=== PATIENT | female | born 1990 | race Caucasian/White ===

== ENCOUNTER 2017-10-21 15:48 | Inpatient (IN) | payer BC ==
[~2017-10-21] VITALS: Ht 160 cm; Wt 85.5 kg
[~2017-10-21 15:48] MED LIST: PREN1TAB60 PO
[2017-10-21 16:42] VITALS: BP 139/93
[2017-10-21 16:42] LABS: BASOPHILS # (AUTO) 0.03 x10^3/uL (0-0.1); BASOPHILS % (AUTO) 0 % (0-1); EOSINOPHILS # (AUTO) 0.23 x10^3/uL (0-0.4); EOSINOPHILS % (AUTO) 3 % (1-7); LYMPHOCYTES # (AUTO) 1.04 x10^3/uL (1-3.4); LYMPHOCYTES % (AUTO) 12 % (22-44); MD NO; MEAN CORPUSCULAR HEMOGLOBIN 26.5 pg (27.0-34.8); MEAN CORPUSCULAR VOLUME 80.4 fL (80-100); MEAN PLATELET VOLUME 7.5 fL (7.4-10.4); MONOCYTES # (AUTO) 0.54 x10^3/uL (0.2-0.8); MONOCYTES % (AUTO) 6 % (2-9); NEUTROPHILS # (AUTO) 6.95 x10^3/uL (1.8-6.8); NEUTROPHILS % (AUTO) 79 % (42-75); PLATELET COUNT 232 x10^3/uL (130-400); RED BLOOD COUNT 4.26 x10^6/uL (3.82-5.3); RED CELL DISTRIBUTION WIDTH 15.7 % (9.6-15.2)
[2017-10-21 16:50] LABS: MICROSCOPIC AUTO
[2017-10-21 16:51] LABS: ALANINE AMINOTRANSFERASE 14 U/L (12-78); ANION GAP 11 mmol/L (5-15); CHLORIDE 107 mmol/L (98-107); CREATININE 0.68 mg/dL (0.55-1.02)
[2017-10-21 16:55] LABS: CREATININE,URINE RANDOM 39.5 mg/dL
[2017-10-21 16:58] LABS: ALKALINE PHOSPHATASE 194 U/L (45-117); BILIRUBIN,TOTAL 0.2 mg/dL (0.2-1.0); TOTAL PROTEIN 6.2 g/dL (6.4-8.2)
[2017-10-21 16:59] LABS: BILIRUBIN, DIRECT < 0.1 mg/dL (0.1-0.2)
[2017-10-21] MEDS ORDERED: ONDANSETRON 2MG/ML, 2ML IVPush PRN (21:30)
[2017-10-21] MEDS ORDERED: ACETAMINOPHEN 325 MG TABLET PO PRN (21:30)
[2017-10-21] MEDS ORDERED: CALCIUM CARBONATE 500 MG TAB.CHEW PO SCH (21:30)
[2017-10-21 22:04] VITALS: BP 133/86
[2017-10-22] MEDS ORDERED: CALCIUM CARBONATE 500 MG TAB.CHEW PO PRN
[2017-10-22] MEDS ORDERED: ACETAMINOPHEN 325 MG TABLET ONE (05:23)
[2017-10-22] MEDS ORDERED: SODIUM CHLORIDE FLUSH 10ML SYR IVF SCH (09:00)
[2017-10-22] MEDS ORDERED: DOCUSATE 100 MG CAPSULE PO SCH (09:00)
[2017-10-22] MEDS ORDERED: PRENATAL VIT/IRON/FA 1 EACH TABLET PO SCH (09:00)
[2017-10-22 10:01] VITALS: BP 132/89
== END 2017-10-22 20:15 | disposition home or self-care (01) | DRG 781 ==
LOC: LDOP 15:48 → LDIP 18:18
PROVIDERS: ADMIT Obstetrics & Gynecology; ATTEND Obstetrics & Gynecology
DX: O14.03 Mild to moderate pre-eclampsia, third trimester (principal); J45.909 Unspecified asthma, uncomplicated; O99.513 Diseases of the respiratory system complicating pregnancy, third trimester; Z3A.35 35 weeks gestation of pregnancy
CPT/HCPCS: 36415; 80053; 81001; 81050; 82239; 82248; 82570; 84156; 84550; 85025; 86850; 86900

== ENCOUNTER 2017-10-27 09:24 | Inpatient (IN) | payer BC ==
[~2017-10-27] VITALS: Ht 160 cm; Wt 86.0 kg
[2017-10-27] MEDS ORDERED: D5%-LACTATED RINGERS 1,000 ML IV SCH (09:34)
[2017-10-27] MEDS ORDERED: OXYTOCIN 30U/ 0.9% NaCL 500ML 500 ML IV ONE (09:34)
[2017-10-27] MEDS ORDERED: OXYTOCIN 30U/ 0.9% NaCL 500ML 500 ML IV PRN (09:34)
[2017-10-27 10:00] VITALS: BP 133/94
[2017-10-27] MEDS ORDERED: ONDANSETRON 2MG/ML, 2ML IVPush PRN (10:00)
[2017-10-27] MEDS ORDERED: FENTANYL PF 100 MCG/2ML IVPush PRN (10:00)
[2017-10-27] MEDS ORDERED: PLEASE ENTER HEIGHT AND WEIGHT MC SCH (10:00)
[2017-10-27] MEDS ORDERED: MISOPROSTOL 25 MCG TABLET VG PRN (10:00)
[2017-10-27] MEDS ORDERED: FENTANYL PF 100 MCG/2ML IV PRN (10:00)
[2017-10-27 10:14] LABS: BASOPHILS # (AUTO) 0.02 x10^3/uL (0-0.1); BASOPHILS % (AUTO) 0 % (0-1); EOSINOPHILS # (AUTO) 0.13 x10^3/uL (0-0.4); EOSINOPHILS % (AUTO) 1 % (1-7); LYMPHOCYTES # (AUTO) 1.03 x10^3/uL (1-3.4); LYMPHOCYTES % (AUTO) 10 % (22-44); MD NO; MEAN CORPUSCULAR HEMOGLOBIN 26.2 pg (27.0-34.8); MEAN CORPUSCULAR HGB CONC 32.2 g/dL (32.4-35.8); MEAN CORPUSCULAR VOLUME 81.3 fL (80-100); MEAN PLATELET VOLUME 7.7 fL (7.4-10.4); MONOCYTES # (AUTO) 0.52 x10^3/uL (0.2-0.8); MONOCYTES % (AUTO) 5 % (2-9); NEUTROPHILS # (AUTO) 8.49 x10^3/uL (1.8-6.8); NEUTROPHILS % (AUTO) 83 % (42-75); PLATELET COUNT 237 x10^3/uL (130-400); RED BLOOD COUNT 4.39 x10^6/uL (3.82-5.3); RED CELL DISTRIBUTION WIDTH 16.3 % (9.6-15.2)
[2017-10-27] MEDS ORDERED: LIDOCAINE 1%, 20ML ONE ×3 (10:33→17:19)
[2017-10-27] MEDS ORDERED: NEWBORN KIT ONE (10:33)
[2017-10-27] MEDS ORDERED: OXYTOCIN 30U/ 0.9% NaCL 500ML 500 ML ONE ×2 (10:33→22:04)
[2017-10-27] MEDS ORDERED: MISOPROSTOL 200 MCG TABLET ONE (10:33)
[2017-10-27] MEDS: LACTATED RINGERS 1,000 ML IV SCH ×3 (10:55→15:49)
[2017-10-27] MEDS ORDERED: LIDOCAINE-MPF 2% ,5ML ONE ×2 (14:40→15:30)
[2017-10-27] MEDS ORDERED: FENTANYL/BUPIV./NS/PF 250 ML EPIDCONT ONE ×2 (14:41→14:45)
[2017-10-27] MEDS ORDERED: FENTANYL/BUPIV./NS/PF 250 ML EPIDCONT SCH (15:17)
[2017-10-27] MEDS ORDERED: EPHEDRINE 50 MG/ML, 1ML IVPush PRN (15:30)
[2017-10-27] MEDS ORDERED: LACTATED RINGERS 1,000 ML IVBOLUS PRN (15:30)
[2017-10-27] MEDS ORDERED: NALOXONE 0.4 MG/ML, 1ML IVPush PRN (15:30)
[2017-10-27] MEDS ORDERED: MAGNESIUM SULF. PMX 20GM/500ML 500 ML IV ONE (17:20)
[2017-10-27] MEDS ORDERED: MAGNESIUM HYDROXIDE 8%, 30ML UDC PO PRN (18:00)
[2017-10-27] MEDS ORDERED: DIPH,PERTUSS(ACELL),TET VAC/PF NC IM-VACC PRN (18:00)
[2017-10-27] MEDS ORDERED: MISOPROSTOL 200 MCG TABLET PR PRN (18:00)
[2017-10-27] MEDS ORDERED: MEASLES,MUMPS&RUBELLA VACC/PF 0.5 ML SQ-VACC PRN (18:00)
[2017-10-27] MEDS ORDERED: OXYcodone/APAP 5/325MG TABLET PO PRN (18:00)
[2017-10-27] MEDS ORDERED: ONDANSETRON 2MG/ML, 2ML IV PRN (18:00)
[2017-10-27] MEDS ORDERED: ACETAMINOPHEN 325 MG TABLET PO PRN ×2 (18:00)
[2017-10-27] MEDS ORDERED: RHOGAM FROM BLOOD BANK 1 NOTE EA IM/IV ONE (18:00)
[2017-10-27] MEDS ORDERED: MAGNESIUM SULFATE PMX 4GM/100M 100 ML IVPB ONE (18:00)
[2017-10-27] MEDS ORDERED: CALCIUM CARBONATE 500 MG TAB.CHEW PO PRN (18:00)
[2017-10-27] MEDS: MAGNESIUM SULF. PMX 20GM/500ML 500 ML IV PRN (18:23)
[2017-10-27] MEDS ORDERED: IBUPROFEN 600 MG TABLET ONE (19:17)
[2017-10-27] MEDS: IBUPROFEN 600 MG TABLET PO PRN (19:20)
[2017-10-27] MEDS ORDERED: OXYcodone/APAP 5/325MG TABLET ONE (20:18)
[2017-10-27] MEDS: OXYcodone/APAP 5/325MG TABLET PO PRN (20:20)
[2017-10-27] MEDS: OXYTOCIN 30U/ 0.9% NaCL 500ML 500 ML IV SCH (22:06)
[2017-10-28] MEDS ORDERED: OXYcodone/APAP 5/325MG TABLET ONE ×2 (00:21→06:32)
[2017-10-28] MEDS: OXYcodone/APAP 5/325MG TABLET PO PRN ×2 (00:23→06:34)
[2017-10-28] MEDS ORDERED: MAGNESIUM SULF. PMX 20GM/500ML 500 ML IV ONE ×2 (01:09→11:18)
[2017-10-28] MEDS: MAGNESIUM SULF. PMX 20GM/500ML 500 ML IV PRN ×2 (01:13→11:24)
[2017-10-28] MEDS: OXYTOCIN 30U/ 0.9% NaCL 500ML 500 ML IV SCH ×3 (03:36→23:36)
[2017-10-28 04:45] LABS: CHLORIDE 101 mmol/L (98-107)
[2017-10-28 04:50] LABS: BASOPHILS # (AUTO) 0.01 x10^3/uL (0-0.1); BASOPHILS % (AUTO) 0 % (0-1); EOSINOPHILS # (AUTO) 0.05 x10^3/uL (0-0.4); EOSINOPHILS % (AUTO) 0 % (1-7); LYMPHOCYTES # (AUTO) 1.51 x10^3/uL (1-3.4); LYMPHOCYTES % (AUTO) 10 % (22-44); MD NO; MEAN CORPUSCULAR HEMOGLOBIN 26.8 pg (27.0-34.8); MEAN CORPUSCULAR HGB CONC 33.2 g/dL (32.4-35.8); MEAN CORPUSCULAR VOLUME 80.7 fL (80-100); MEAN PLATELET VOLUME 7.8 fL (7.4-10.4); MONOCYTES # (AUTO) 0.83 x10^3/uL (0.2-0.8); MONOCYTES % (AUTO) 6 % (2-9); NEUTROPHILS # (AUTO) 12.15 x10^3/uL (1.8-6.8); NEUTROPHILS % (AUTO) 84 % (42-75); PLATELET COUNT 214 x10^3/uL (130-400); RED BLOOD COUNT 3.82 x10^6/uL (3.82-5.3); RED CELL DISTRIBUTION WIDTH 16.2 % (9.6-15.2)
[2017-10-28 04:53] LABS: ALANINE AMINOTRANSFERASE 14 U/L (12-78); ALBUMIN 1.8 g/dL (3.4-5.0); ALKALINE PHOSPHATASE 169 U/L (45-117); ANION GAP 10 mmol/L (5-15); BILIRUBIN,TOTAL 0.3 mg/dL (0.2-1.0); CALCIUM 6.4 mg/dL (8.5-10.1); CREATININE 0.42 mg/dL (0.55-1.02); TOTAL PROTEIN 5.3 g/dL (6.4-8.2)
[2017-10-28] MEDS: LACTATED RINGERS 1,000 ML IV SCH (05:32)
[2017-10-28] MEDS ORDERED: IBUPROFEN 600 MG TABLET ONE ×2 (05:40→17:56)
[2017-10-28] MEDS: IBUPROFEN 600 MG TABLET PO PRN ×2 (05:41→17:58)
[2017-10-28 08:28] VITALS: BP 134/88
[2017-10-28] MEDS ORDERED: DOCUSATE 100 MG CAPSULE ONE (08:32)
[2017-10-28] MEDS ORDERED: PRENATAL VIT/IRON/FA 1 EACH TABLET ONE (08:32)
[2017-10-28] MEDS: DOCUSATE 100 MG CAPSULE PO PRN (08:37)
[2017-10-28] MEDS: PRENATAL VIT/IRON/FA 1 EACH TABLET PO SCH (09:00)
[2017-10-28 10:26] VITALS: BP 139/92
[2017-10-28 13:37] VITALS: BP 142/91
[2017-10-28 16:32] VITALS: BP 137/87
[2017-10-28 19:50] VITALS: BP 138/95
[2017-10-29] VITALS: BP 128/81
[2017-10-29 03:55] VITALS: BP 142/91
[2017-10-29 07:30] VITALS: BP 144/91
[2017-10-29] MEDS: IBUPROFEN 600 MG TABLET PO PRN ×2 (08:17→14:24)
[2017-10-29] MEDS: DOCUSATE 100 MG CAPSULE PO PRN (08:17)
[2017-10-29] MEDS: PRENATAL VIT/IRON/FA 1 EACH TABLET PO SCH (08:17)
[2017-10-29] MEDS: OXYTOCIN 30U/ 0.9% NaCL 500ML 500 ML IV SCH (09:36)
[2017-10-29 12:10] VITALS: BP 143/93
[2017-10-29] MEDS ORDERED: IBUP-1222 PO (16:18)
== END 2017-10-29 18:00 | disposition home or self-care (01) | DRG 775 ==
LOC: LDIP 09:24 → 2NE 22:17 → 2NW 10-28 19:22
PROVIDERS: ADMIT Obstetrics & Gynecology; ATTEND Obstetrics & Gynecology
PROC: 10E0XZZ Delivery of Products of Conception, External Approach (ICD-10-PCS; principal; 2017-10-28)
PROC: 0KQM0ZZ Repair Perineum Muscle, Open Approach (ICD-10-PCS; 2017-10-28)
PROC: 3E0R3BZ Introduction of Anesthetic Agent into Spinal Canal, Percutaneous Approach (ICD-10-PCS; 2017-10-28)
PROC: 00HU33Z Insertion of Infusion Device into Spinal Canal, Percutaneous Approach (ICD-10-PCS; 2017-10-28)
DX: O14.94 Unspecified pre-eclampsia, complicating childbirth (principal); O70.1 Second degree perineal laceration during delivery; Z37.0 Single live birth; Z3A.36 36 weeks gestation of pregnancy
CPT/HCPCS: 36415; 80053; 82803; 83735; 84550; 85025; 86850; 86900; 90715; J3490; J2590; J3010; J3475; J7120